=== PATIENT | female | born 2000 | race Two or more races ===

== ENCOUNTER 2024-06-08 13:15 | Inpatient (IN) | payer OTHER ==
[~2024-06-08] VITALS: Ht 160 cm; Wt 70.8 kg
[~2024-06-08 13:15] MED LIST: ONDANSETRON ODT4 MG PO; PEPCID40 MG PO
[2024-06-16] VITALS (10 sets, daily range): BP systolic 118–153; BP diastolic 56–84
[2024-06-16] MEDS ORDERED: AMPICILLIN SODIUM 2,000 MG VIAL IV STA (05:12)
[2024-06-16] MEDS ORDERED: AMPICILLIN SODIUM 1,000 MG VIAL IV SCH (05:12)
[2024-06-16] MEDS ORDERED: RINGERS SOLUTION,LACTATED 1,000 ML IV SCH (05:15)
[2024-06-16 06:32] LABS: HEMOGLOBIN 11.4 g/dL (12.0-15.00); MEAN CELL VOLUME 74.5 fL (80.00-100.00); MEAN CORPUSCULAR HGB CONC 33.6 g/dl (32.0-36.0); PLATELET COUNT 209 K/uL (150-450); RED BLOOD COUNT 4.57 M/uL (4.00-6.00)
[2024-06-16 06:38] LABS: RED CELL DISTRIBUTION WIDTH 18.6 % (11.5-14.5)
[2024-06-16 06:45] LABS: URINE APPEARANCE Clear; URINE BILIRRUBIN Negative (NEGATIVE); URINE BLOOD Large; URINE COLOR Yellow; URINE GLUCOSE Negative (NEGATIVE); URINE KETONE Negative (NEGATIVE); URINE LEUKOCYTE Small; URINE NITRATE Negative; URINE PROTEIN Trace (NEGATIVE)
[2024-06-16] MEDS ORDERED: VALTREX1000 MG PO (06:45)
[2024-06-16 06:50] LABS: URINE BACTERIA 1622.6 uL (0.0-1933); URINE EPITHELIAL CELLS 46.3 uL (0.0-38.8); URINE RBC 2.5 uL (0.0-20.8); URINE WBC 43.8 uL (0.0-23.2)
[2024-06-16 07:01] LABS: INR 0.94; PARTIAL THROMBOPLASTIN TIME 25.6 SECONDS (22.0-34.0); PROTHROMBIN TIME 10.3 SECONDS (9.0-11.5)
[2024-06-16 07:12] LABS: BILIRUBIN TOTAL 0.75 mg/dL (0.3-1.2); CALCIUM 9.3 mg/dL (8.5-10.1); CREATININE SERUM 0.53 mg/dL (0.55-1.02); GFR 139.44; GLOBULINA 3.8 G/DL (2.4-3.5); POTASSIUM 4.22 mEq/L (3.5-5.1); TOTAL PROTEIN 6.8 gm/dL (6.4-8.2)
[2024-06-16 07:20] LABS: URINE CAST 0.61 uL (0.0-1.40)
[2024-06-16] MEDS ORDERED: OXYTOCIN 20 UNITS/500ML RL PIGGYBAG IV ONE (07:30)
[2024-06-16] MEDS ORDERED: MEPERIDINE HCL/PF 50 MG/ML VIAL IV STA (08:33)
[2024-06-16] MEDS ORDERED: PROMETHAZINE HCL 25 MG/ML AMPUL IV STA (08:33)
[2024-06-16] MEDS ORDERED: ERYTHROMYCIN BASE OPHT 1GM EACH TUBE OP ONE (11:45)
[2024-06-16] MEDS ORDERED: ACETAMINOPHEN 325 MG TABLET PO PRN (11:45)
[2024-06-16] MEDS ORDERED: OXYTOCIN 20 UNITS/1000ML RL PIGGYBAG IV ONE (11:45)
[2024-06-16] MEDS ORDERED: LIDOCAINE HCL 1% 10ML VIAL IJ ONE (11:45)
[2024-06-16] MEDS ORDERED: OxyCODONE HCL/APAP UD (PERCOCET) PO PRN (11:45)
[2024-06-16] MEDS ORDERED: CHLORHEXIDINE GLUCONATE 120 ML BOTTLE TOP ONE (11:45)
[2024-06-16] MEDS ORDERED: HYDROCORTISONE 2.5% 30 GM TUBE RECTAL SCH (17:00)
[2024-06-16] MEDS ORDERED: BENZOCAINE/MENTHOL 90 ML BOTTLE TOP SCH (17:00)
[2024-06-17 01:16] VITALS: BP 127/77
[2024-06-17 03:27] LABS: HEMATOCRIT 31.8 % (36.0-45.00); MEAN CELL VOLUME 75.6 fL (80.00-100.00); MEAN CORPUSCULAR HEMOGLOBIN 24.7 pg (27.00-32.0); MEAN CORPUSCULAR HGB CONC 32.6 g/dl (32.0-36.0); PLATELET COUNT 191 K/uL (150-450); RED CELL DISTRIBUTION WIDTH 18.8 % (11.5-14.5)
[2024-06-17 03:30] LABS: HEMOGLOBIN 10.4 g/dL (12.0-15.00)
[2024-06-17 08:50] VITALS: BP 130/77
[2024-06-17 16:00] VITALS: BP 128/76
[2024-06-18 00:35] VITALS: BP 128/77
[2024-06-18 08:21] VITALS: BP 124/70
== END 2024-06-18 14:36 | disposition home or self-care (01) | DRG 807 ==
LOC: LDR 06-16 05:08 → OB/GYN 06-16 05:08 → LDR 06-16 13:15 → OB/GYN 06-16 14:05
PROVIDERS: ADMIT Specialist; ATTEND Specialist
PROC: 10E0XZZ Delivery of Products of Conception, External Approach (ICD-10-PCS; principal; 2024-06-16)
PROC: 4A1HXCZ Monitoring of Products of Conception, Cardiac Rate, External Approach (ICD-10-PCS; 2024-06-16)
DX: O99.824 Streptococcus B carrier state complicating childbirth (principal); Z37.0 Single live birth; Z3A.40 40 weeks gestation of pregnancy; Z20.822 Contact with and (suspected) exposure to COVID-19